=== PATIENT | female | born 1960 | race Caucasian/White ===

== ENCOUNTER 2019-03-30 04:44 | Emergency (ER) | payer BC, OTHER ==
[~2019-03-30] VITALS: Ht 162.6 cm; Wt 86.2 kg
[2019-03-30] MEDS ORDERED: IV NORMAL SALINE 1000 ML BAG IV ONE (05:00)
[2019-03-30] MEDS ORDERED: ONDANSETRON 4 MG/2 ML VIAL IV ONE (05:00)
[2019-03-30] MEDS ORDERED: ONDANSETRON 4 MG/2 ML VIAL ONE (05:05)
--- NOTE | 2019-03-30 05:18 | NUR ---
MD AT BEDSIDE FOR HX AND PHYSICAL PT C/O NVD AND CHILLS SINCE MIDNIGHT DENIES RECENT TRAVELS DENIES ANY PAIN NO APPARENT RESP DISTRESS PT ABLE TO TOLERATE IVF INSERTION TO L AC G20 MONITORED ACCORDINGLY SIDERAILSX2 UP, BED AT LOWEST POSITION
[2019-03-30 05:29] LABS: BASOPHILS % (AUTO) 0.2 % (0.0-2.0); EOSINOPHILS % (AUTO) 0.2 % (0.0-7.0); HEMATOCRIT 41.4 % (31.2-41.9); HEMOGLOBIN 13.8 g/dL (10.9-14.3); LYMPHOCYTES # (AUTO) 0.2 K/uL (20.0-40.0); LYMPHOCYTES % (AUTO) 2.5 % (20.5-51.5); MEAN CORPUSCULAR HEMOGLOBIN 29.1 uug (24.7-32.8); MEAN CORPUSCULAR HGB CONC 33 g/dL (32.3-35.6); MEAN CORPUSCULAR VOLUME 87.3 fL (75.5-95.3); MONOCYTES # (AUTO) 0.3 K/uL (2.0-10.0); MONOCYTES % (AUTO) 3.4 % (0.0-11.0); NEUTROPHILS # (AUTO) 8.8 K/uL (1.8-8.9); NEUTROPHILS % (AUTO) 93.7 % (38.5-71.5); PLATELET COUNT (AUTO) 242 K/uL (179-408); RED BLOOD CELL COUNT(AUTO) 4.74 MIL/uL (3.63-4.92); WHITE BLOOD COUNT (AUTO) 9.4 K/uL (3.8-11.8)
[2019-03-30 06:12] LABS: BILIRUBIN,DIRECT 0.3 mg/dL (0.0-0.2); BILIRUBIN,TOTAL 1.7 mg/dL (0.2-1.0); TOTAL PROTEIN, SERUM 8.1 g/dL (6.4-8.2)
--- NOTE | 2019-03-30 06:14 | NUR ---
PO CHALLENGE INITIATED INSTRUCTED BY ERMD: PT ABLE TO TOLERATE ICE CHIPS AND SIPS OF 30ML OF WATER
--- NOTE | 2019-03-30 06:26 | NUR ---
PT STILL DENIES URGE TO URINATE
--- NOTE | 2019-03-30 06:41 | NUR ---
PT ABLE TO TOLERATE 170ML OF WATER MD AT BEDSIDE FOR UPDATE
[2019-03-30] MEDS ORDERED: IV NS 1000 ML 1,000 ML IV ONE (06:45)
--- NOTE | 2019-03-30 07:00 | NUR ---
HAND OFF AND SBAR GIVEN TO INCOMING DAY SHIFT RN 2ND BAG OF IVF AT 500ML, INFUSING WELL AND INTACT TO L AC G20 PT IS COHERENT, ABLE TO SPEAK CLEAR AND COMPLETE SENTENCES. PT STATES RELIEF OF LIGHTHEADEDNESS. DENIES EMESIS UNABLE TO PROVIDE URINE SAMPLE AT THIS TIME PLAN: TO FINISH 2ND BAG OF IVF, REASSESS VITALS. EXIT CARE PRINTED
--- NOTE | 2019-03-30 07:15 | NUR ---
PATIENT IS AWAKE AND ALERT. NO FURTHER VOMITING.
--- NOTE | 2019-03-30 07:43 | NUR ---
IV removed. Catheter intact and site benign. Pressure and 4x4 gauze applied to site. No bleeding noted.
--- NOTE | 2019-03-30 07:43 | NUR ---
DC, RX AND FOLLOW UP INSTRUCTIONS GIVEN AND EXPLAINED TO PATIENT WHO STATES SHE UNDERSTANDS ALL INSTRUCTIONS.
[2019-03-30 07:51] LABS: *BILIRUBIN,URIN NEGATIVE (NEGATIVE); *BLOOD, URINE 2+ (NEGATIVE); *CLARITY,URINE CLEAR (CLEAR); *COLOR,URINE YELLOW (YELLOW); *KETONES,URINE 1+ (NEGATIVE); *UROBILINOGEN,URINE 0.2 E.U./dl (NORMAL); LEUKOCYTE ESTERASE ,URINE 1+ (NEGATIVE); NITRITE, URINE NEGATIVE (NEGATIVE); PH,URINE 5.5 (5.0-8.0); UGLUCOSE NEGATIVE (NEGATIVE)
[2019-03-30 08:01] LABS: BACTERIA,URINE FEW /HPF (NONE SEEN); MUCUS,URINE MODERATE /LPF (0-FEW); SQUAMOUS EPITHELIAL CELL,UR FEW /HPF (NONE SEEN); WBC,URINE 0-3 /HPF (0-3)
== END 2019-03-30 07:46 | disposition home or self-care (01) ==
LOC: ER 04:50
DX: R11.10 Vomiting, unspecified (principal); R19.7 Diarrhea, unspecified; I10 Essential (primary) hypertension; E78.5 Hyperlipidemia, unspecified; E03.9 Hypothyroidism, unspecified
CPT/HCPCS: 36415; 80048; 80076; 81000; 81001; 83690; 85025; 87086; 96374; 99283; J2405; A4663; J7030